=== PATIENT | male | born 1985 | race Caucasian/White ===

== ENCOUNTER 2020-03-16 22:00 | Inpatient (IN) | payer SELFPAY ==
[2020-03-16] VITALS (7 sets, daily range): BP systolic 120–155; BP diastolic 77–101; PULSE 99–115; RESP 12–18; TEMP 36.6; O2SAT 97–98; BMI 24.4
--- NOTE | 2020-03-16 22:02 | XRR_ITS ---
PROCEDURE INFORMATION: Exam: XR Chest, 1 View Exam date and time: 03/16/2020 10:52 PM Age: 35 years old Clinical indication: Patient HX: Overdose, patient intubated TECHNIQUE: Imaging protocol: XR of the chest Views: 1 view. COMPARISON: No relevant prior studies available. FINDINGS: Tubes, catheters and devices: Endotracheal and feeding tubes. The endotracheal tube terminates 4.9 cm above the rigo. Lungs: Interstitial prominence without acute airspace disease. Pleural space: No pleural effusion or pneumothorax. Heart/Mediastinum: No cardiomegaly. Bones/joints: Unremarkable. XR/XR chest 1V portable [id number] IMPRESSION: 1. Endotracheal and feeding tubes. The endotracheal tube terminates 4.9 cm above the rigo. 2. No acute airspace or pleural disease.
--- NOTE | 2020-03-16 22:03 | ECG_ITS ---
Measurements Intervals [place] Rate: 104 P: 64 OR: 139 QRS: 76 QRSD: 86 T: 65 QT: 329 QTc: 433 SINUS TACHYCARDIA ABNORMAL RHYTHM ECG No previous ECG available for comparison Electronically Signed On 03-17-2020 18:53:06 CDT by Modesto Kinney M.D. [email or web address]
--- NOTE | 2020-03-16 22:18 | P.HP_ITS ---
Providers/Chief Complaint Chief Complaint: OVERDOSE/ COMBATIVE History of Present Illness Luis Beltrán is a 35 year old male who was brought in by EMS because of bizarre behavior. Patient was very agitated and was using foul language and hitting staff. He was intubated in the ER. told us that he endorsed suicidal ideation, he took 10 mg of Flexeril. called leasing representative on him because of his behavior. When leasing representative arrived at home he tried to hide in his bedroom, took a lot of effort to bring him to the hospital. He was not letting us examine him, ER decided to intubate him. Poison control recommended monitoring for seizures, worsening of delirium, tachypnea, tachycardia. I have tried to call to get more detail but she did not answer my phone call at 12:21 AM Currently he is intubated and sedated. CMV 60%, 550, PEEP 5 Drug screen positive for amphetamines Review of Systems General: Reports: ROS unobtainable due to endotracheal tube Medications/Allergies Home Medications Medication Instructions Recorded Confirmed Last Taken Type Unable to Assess 03/16/20 03/16/20 Unknown History Allergies Allergy/AdvReac Type Severity Reaction Status Date / Time No Known Allergies Allergy Verified 03/16/20 22:34 PFSH Acute PFSH: Medical History No pertinent past medical history Surgical History No pertinent past surgical history Family History (Updated 03/17/20 @ 00:17 by Modesto Mc MD) Other Unknown family medical history Social History Smoking and tobacco status: unknown if ever smoked Physical Exam Narrative: EXAM NARRATIVE: Head to toe examination Well-built male No active skin ulcer or gangrene Intubated and sedated CMV PEEP 5, 60%, 550 tidal volume Pupils reactive to light bilaterally Multiple body tattoos S1, S2 Sluggish bowel sound Neuro exam not able to be assessed Lungs revealing assisted breath sounds without adventitious sounds Needle track guan bilateral upper extremity Deeply sedated with propofol Data : 03/16/20 22:23 03/16/20 22:23 A&P Assessment and plan (1) Combative behavior: Status: Acute (2) Respiratory failure: Status: Acute (3) Delirium due to dissociative drug: Status: Acute (4) Drug overdose, intentional: Status: Acute (5) Suicidal ideation: Status: Acute (6) Amphetamine abuse: Status: Acute Additional A&P Information Respiratory failure requiring intubation because of aggressive hyperactive delirium due to methamphetamine abuse Intubated and sedated in the ER, Martinez agitation score -2 Drug screen positive for amphetamines He took Flexeril 10 mg multiple tablets Poison control recommended medical monitoring for seizure, delirium, hypertension, tachycardia He will need psych evaluation and 96-hour hold once extubated because of her suicidal attempt I will start thiamine and D5 half-normal saline resuscitation Continue propofol Repeat blood gas in the morning I have tried to call his to get more information but unfortunately she was not able to answer my call, his past medical surgical and family history is still unknown, I have tried to look into his previous records, could not find useful information other than a CT abdomen which was unremarkable Full code DVT prophylaxis: Lovenox Attestations Medical Necessity Statement*: Anticipating stay in the hospital cross more than 2 midnights currently need ICU, he is intubated, after extubation he will be on 96-hour hold for suicidal ideation Time Spent in Patient Care: 45 Coding Level of Care Code Acute Mobility Specialist for [facility] Fwd Diagnoses Combative behavior R46.89 Respiratory failure J96.90 Delirium due to dissociative drug F16.921 Drug overdose, intentional T50.902A Suicidal ideation R45.851 Amphetamine abuse F15.10
[2020-03-16] MEDS: haloperidol inj 5 mg/mL INJ 1 mL IM (22:21)
[2020-03-16] MEDS: LORazepam 2 mg/mL INJ 1 mL IM (22:21)
[2020-03-16] MEDS: vecuronium 10 mg SDV IVP (22:28)
[2020-03-16] MEDS: succinylcholine 20 mg/mL SDV 10mL 150 MG IVP (22:28)
[2020-03-16 22:30] LABS: Basophils % 0.4 %; Eosinophils # 0.2 10^3/uL (0.0-0.8); Hemoglobin 13.9 g/dL (11.7-16.6); Lymphocytes # 1.6 10^3/uL (0.8-4.8); Lymphocytes % 20.9 %; Mean Corpuscular HGB Conc 33.1 g/dL (30.0-36.0); Mean Corpuscular Hemoglobin 30.2 pg (28.0-34.0); Mean Corpuscular Volume 91.3 fL (80-94); Mean Platelet Volume 8.7 fL (7.4-10.4); Monocytes # 0.4 10^3/uL (0.2-0.9); Monocytes % 5.8 %; Neutrophils # 5.4 10^3/uL (1.8-7.7); Neutrophils % 70.8 %; Nucleated Red Blood Cells % 0 %; Platelet Count 302 10^3/cmm (130-400); Red Cell Distribution Width 12.7 % (12.1-15.1); White Blood Count 7.6 10^3/uL (4.0-10.0)
--- NOTE | 2020-03-16 22:31 | ED_ITS ---
HPI - Overdose General: Chief Complaint: Overdose Stated Complaint: OVERDOSE/ COMBATIVE Time Seen by Provider: 03/16/20 22:01 History of Present Illness: HPI Narrative: Luis arrives via EMS in restraints but is agitated and combative and trying to fight with the EMS upon arrival. EMS reports the patient was witnessed ingesting an unknown amount of Flexeril within the past few hours. It is unknown if he has had any alcohol or any other ingestions with this. EMS reports the patient is alternated between extremely somnolent and then agitated and combative necessitating maximal restraints to keep him from hurting himself or them. Patient here will provide no history and continues to be agitated and combative. Review of Systems General: Reports: ROS unobtainable due to medical condition and ROS unobtainable due to mental status PFS ED PFSH: Medical History No pertinent past medical history Surgical History No pertinent past surgical history Family History (Updated 03/17/20 @ 00:17 by Modesto Mc MD) Other Unknown family medical history Social History Smoking and tobacco status: unknown if ever smoked Physical Exam Const: EXAM LIMITATIONS: altered mental status and behavioral limitations GENERAL APPEARANCE: combative HENMT: COMMON NORMALS: normocephalic, atraumatic, hearing grossly normal bilaterally, EAC's normal and Normal external nose present HEAD & SCALP: normocephalic and atraumatic FACE & SINUS: normal facial exam NOSE: Normal external nose present and Normal nares present EXTERNAL AUDITORY CANAL: EAC's normal Eye: COMMON NORMALS: Equal, round and reactive pupils present and conjunctivae normal CONJUNCTIVA: Yes conjunctivae normal PUPIL: Yes Equal, round and reactive pupils present Neck/C-Spine: COMMON NORMALS: no lymphadenopathy, supple and no meningeal signs Chest: COMMONS NORMALS: normal inspection of the chest and normal palpation of entire chest wall Resp: EFFORT & INSPECTION: Yes abnormal respiratory pattern (Alternating between tachypnea with agitation and then at times very shallow weak expiratory efforts.) Cardio: COMMON NORMALS: S1 normal heart sound present, S2 normal heart sound present, No clicks present (Cardio), No murmurs present (Cardio) and No rub (Cardio) RATE: tachycardic HEART SOUNDS: S1 normal heart sound present and S2 normal heart sound present GI: COMMON NORMALS: Soft to palpation, non-tender, No hepatosplenomegaly present and no masses PALPATION: Yes Soft to palpation and Yes No he patosplenomegaly present Extremity: COMMON NORMALS: normal to inspection, capillary refill normal, no joint enlargement, no clubbing, cyanosis or edema, no calf tenderness and no pedal edema Neuro: AMANDA COMA SCALE: document GCS findings [place] coma scale eye opening: None Amanda coma scale verbal response: Sounds Amanda coma scale motor response: Localising [place] coma scale total score: 8 MENINGEAL SIGNS: Yes no meningeal signs Skin: COMMON NORMALS: no rashes or lesions noted, no wounds, turgor normal, no jaundice, no petechiae and no mottling GENERAL SKIN EXAM: no rashes or lesions noted and turgor normal Procedures EJ/Peripheral Line Arm L: Time Out Performed: Yes Skin Cleansed in Sterile Fashion: Yes Size (gauge): 20 IV Secured and Dressing Applied: Yes Patient Tolerated Procedure: well Additional Comments: Ultrasound used and line confirmed in place after and also visualized throughout. Intubation sedative: Etomidate Mg Given: 20 Laryngoscope: Salvador ET Tube Size: 8 ET Tube Uncuffed: Yes Tube Secured Depth (cm): 22 Tube Secured Location: lips Tube Placement Confirmation: visualized tube passing through cords, equal breath sounds bilaterally, no breath sounds over epigastrium and confirmation by capnometry Patient Tolerated Procedure: well and no complications Intubation Complications: none Course ED course: 2209 -patient is combative and agitated and fights. He is lashing out at nurses and is a threat to himself and others. He has had Haldol and Ativan with no effect. He does not respond to verbal de-escalation prompts. I have quickly consulted with Dr. Mc who is in agreement we will need to intubate the patient to expedite his care as with him fighting we cannot address possible serious life-threatening ingestions and other problems. 2299 -I discussed recent events leading up to the night with Luis's Joann. She called in to ask how he was and she was updated on his condition. She states that he was witnessed taking a large amount of Flexeril by family members. She does believe he did this in a suicidal gesture. She is willing to come in and place an affidavit on the chart but cannot do so until tomorrow. She is unaware if he took anything else or has ingested any alcohol today. 2310 -Case reviewed with poison control. They state Flexeril alone can cause obtundation as well as agitated delirium secondary to anticholinergic type symptoms. He can also have tremors and seizures along with tachycardia. He can have hypotension as well as hypertension. They do recommend following his CK secondary to the agitation. They will send management guidelines by fax. Vital Signs: Vital signs: Vital Signs Temperature 97.8 F 03/16/20 22:17 Pulse Rate 95 03/17/20 01:11 Respiratory Rate 16 03/17/20 01:11 Blood Pressure 124/80 03/17/20 01:11 Pulse Oximetry 98 03/17/20 01:11 MDM - Overdose Lab Data: Labs: Lab Results 03/16/20 03/16/20 03/16/20 Range/Units 22:23 22:23 22:23 WBC 7.6 (4.0-10.0) 10^3/ uL RBC 4.60 (4.1-5.3) 10^6/u L Hgb 13.9 (11.7-16.6) g/dL Hct 42.0 (42.0-52.0) % MCV 91.3 (80-94) fL MCH 30.2 (28.0-34.0) pg MCHC 33.1 (30.0-36.0) g/dL RDW 12.7 (12.1-15.1) % Plt Count 302 (130-400) 10^3/c mm MPV 8.7 (7.4-10.4) fL Neut % (Auto) 70.8 % Lymph % (Auto) 20.9 % Cochran % (Auto) 5.8 % Eos % (Auto) 2.0 % Baso % (Auto) 0.4 % Neut # (Auto) 5.4 (1.8-7.7) 10^3/u L Lymph # (Auto) 1.6 (0.8-4.8) 10^3/u L Cochran # (Auto) 0.4 (0.2-0.9) 10^3/u L Eos # (Auto) 0.2 (0.0-0.8) 10^3/u L Baso # (Auto) 0.0 (0.0-0.1) 10^3/u L Nucleated RBC % (a uto) 0 % Nucleated RBCs # 0.0 /100WBC PT (10.5-13.3) SECO NDS INR (0.8-1.2) Specimen Type Sample Site ABG pH (7.35-7.45) ABG pCO2 (35-45) mmHg ABG HCO3 (22-26) mmol/L ABG Base Excess (-2.0-2.0) mmol/ L Venu Test A-a O2 Gradient (5-10) mmHg Hematocrit (42-52) % Hgb O2 Saturation (95-100) % Carboxyhemoglobin (0.4-20.1) %THgb Methemoglobin (0.4-1.5) % Total Hemoglobin (14-18) g/dL Ionized Calcium (1.1-1.4) mmol/L Respiration Rate % O2 Delivery Device Mechanical Rate FiO2 % PEEP cmH20 [employer] Official ID Sodium 141 (136-145) mmol/L Potassium 3.7 (3.5-5.1) mmol/L Chloride 104 (98-107) mmol/L Carbon Dioxide 25 (22-29) mmol/L Anion Gap 15.7 (5-19) BUN 7 (6-20) mg/dL Creatinine 1.0 (0.7-1.2) mg/dL GFR Calculation 84.5 L (90-130) mL/min Glucose 112 (65-115) mg/dL Calculated Osmolal ity 289 (285-295) mOsm/k g Lactic Acid 1.3 (0.5-2.2) mmol/L Calcium 9.4 (8.5-10.5) mg/dL Magnesium 2.0 (1.7-2.3) mg/dL Total Bilirubin 0.2 (0.15-1.2) mg/dL AST 15 (0-40) U/L ALT 21 (0-41) U/L Alkaline Phosphata se 68 (40-130) IU/L Creatine Kinase 96 (39-308) U/L Troponin T Baselin e (0-15) ng/mL Total Protein 6.8 (6.6-8.7) g/dL Albumin 4.1 (3.5-5.2) g/dL Globulin 2.7 (1.3-4.6) g/dL TSH 2.55 (0.27-4.20) uIU/ mL Urine Color (Yellow) Urine Appearance (CLEAR) Urine pH (5-7) Ur Specific Gravit y (1.005-1.030) Urine Protein (Negative) Urine Glucose (UA) (Normal) Urine Ketones (Negative) Urine Blood (Negative) Urine Nitrate (Negative) Urine Bilirubin (NEGATIVE) Urine Urobilinogen (Negative) mg/dL Ur Leukocyte Sybil ase (Negative) Urine RBC (0-2) /hpf Urine WBC (0-5) /hpf Ur Squamous Epith Cells (0-5) Urine Bacteria (NONE) Salicylates < 0.3 L (3-10) mg/dL Urine Opiates Scre en (Negative) ng/mL Acetaminophen < 5.0 L (10-30) ug/mL Ur Barbiturates Sc reen (Negative) ng/mL Phenytoin 0.8 L (10-20) ug/mL Valproic Acid 2.8 L (50-100) mcg/mL Carbamazepine 2.0 L (4.0-12.0) ug/mL Ur Phencyclidine S crn (Negative) ng/mL Ur Amphetamines Sc reen (Negative) ng/mL U Benzodiazepines Scrn (Negative) ng/mL [place] (0.6-1.2) mmol/L Urine Cocaine Scre en (Negative) ng/mL U Marijuana (THC) Screen (Negative) ng/mL Ethyl Alcohol < 10 (0-10) mg/dL Serum Ketones (Negative) 03/16/20 03/16/20 03/16/20 Range/Units 22:23 22:23 22:23 WBC (4.0-10.0) 10^3/ uL RBC (4.1-5.3) 10^6/u L Hgb (11.7-16.6) g/dL Hct (42.0-52.0) % MCV (80-94) fL MCH (28.0-34.0) pg MCHC (30.0-36.0) g/dL RDW (12.1-15.1) % Plt Count (130-400) 10^3/c mm MPV (7.4-10.4) fL Neut % (Auto) % Lymph % (Auto) % Cochran % (Auto) % Eos % (Auto) % Baso % (Auto) % Neut # (Auto) (1.8-7.7) 10^3/u L Lymph # (Auto) (0.8-4.8) 10^3/u L Cochran # (Auto) (0.2-0.9) 10^3/u L Eos # (Auto) (0.0-0.8) 10^3/u L Baso # (Auto) (0.0-0.1) 10^3/u L Nucleated RBC % (a uto) % Nucleated RBCs # /100WBC PT 12.90 (10.5-13.3) SECO NDS INR 0.94 (0.8-1.2) Specimen Type Sample Site ABG pH (7.35-7.45) ABG pCO2 (35-45) mmHg ABG HCO3 (22-26) mmol/L ABG Base Excess (-2.0-2.0) mmol/ L Venu Test A-a O2 Gradient (5-10) mmHg Hematocrit (42-52) % Hgb O2 Saturation (95-100) % Carboxyhemoglobin (0.4-20.1) %THgb Methemoglobin (0.4-1.5) % Total Hemoglobin (14-18) g/dL Ionized Calcium (1.1-1.4) mmol/L Respiration Rate % O2 Delivery Device Mechanical Rate FiO2 % PEEP cmH20 [employer] Official ID Sodium (136-145) mmol/L Potassium (3.5-5.1) mmol/L Chloride (98-107) mmol/L Carbon Dioxide (22-29) mmol/L Anion Gap (5-19) BUN (6-20) mg/dL Creatinine (0.7-1.2) mg/dL GFR Calculation (90-130) mL/min Glucose (65-115) mg/dL Calculated Osmolal ity (285-295) mOsm/k g Lactic Acid (0.5-2.2) mmol/L Calcium (8.5-10.5) mg/dL Magnesium (1.7-2.3) mg/dL Total Bilirubin (0.15-1.2) mg/dL AST (0-40) U/L ALT (0-41) U/L Alkaline Phosphata se (40-130) IU/L Creatine Kinase (39-308) U/L Troponin T Baselin e (0-15) ng/mL Total Protein (6.6-8.7) g/dL Albumin (3.5-5.2) g/dL Globulin (1.3-4.6) g/dL TSH (0.27-4.20) uIU/ mL Urine Color (Yellow) Urine Appearance (CLEAR) Urine pH (5-7) Ur Specific Gravit y (1.005-1.030) Urine Protein (Negative) Urine Glucose (UA) (Normal) Urine Ketones (Negative) Urine Blood (Negative) Urine Nitrate (Negative) Urine Bilirubin (NEGATIVE) Urine Urobilinogen (Negative) mg/dL Ur Leukocyte Sybil ase (Negative) Urine RBC (0-2) /hpf Urine WBC (0-5) /hpf Ur Squamous Epith Cells (0-5) Urine Bacteria (NONE) Salicylates (3-10) mg/dL Urine Opiates Scre en (Negative) ng/mL Acetaminophen (10-30) ug/mL Ur Barbiturates Sc reen (Negative) ng/mL Phenytoin (10-20) ug/mL Valproic Acid (50-100) mcg/mL Carbamazepine (4.0-12.0) ug/mL Ur Phencyclidine S crn (Negative) ng/mL Ur Amphetamines Sc reen (Negative) ng/mL U Benzodiazepines Scrn (Negative) ng/mL [place] 0.1 L (0.6-1.2) mmol/L Urine Cocaine Scre en (Negative) ng/mL U Marijuana (THC) Screen (Negative) ng/mL Ethyl Alcohol (0-10) mg/dL Serum Ketones Negative (Negative) 03/16/20 03/16/20 03/16/20 Range/Units 22:23 23:02 23:02 WBC (4.0-10.0) 10^3/ uL RBC (4.1-5.3) 10^6/u L Hgb (11.7-16.6) g/dL Hct (42.0-52.0) % MCV (80-94) fL MCH (28.0-34.0) pg MCHC (30.0-36.0) g/dL RDW (12.1-15.1) % Plt Count (130-400) 10^3/c mm MPV (7.4-10.4) fL Neut % (Auto) % Lymph % (Auto) % Cochran % (Auto) % Eos % (Auto) % Baso % (Auto) % Neut # (Auto) (1.8-7.7) 10^3/u L Lymph # (Auto) (0.8-4.8) 10^3/u L Cochran # (Auto) (0.2-0.9) 10^3/u L Eos # (Auto) (0.0-0.8) 10^3/u L Baso # (Auto) (0.0-0.1) 10^3/u L Nucleated RBC % (a uto) % Nucleated RBCs # /100WBC PT (10.5-13.3) SECO NDS INR (0.8-1.2) Specimen Type Sample Site ABG pH (7.35-7.45) ABG pCO2 (35-45) mmHg ABG HCO3 (22-26) mmol/L ABG Base Excess (-2.0-2.0) mmol/ L Venu Test A-a O2 Gradient (5-10) mmHg Hematocrit (42-52) % Hgb O2 Saturation (95-100) % Carboxyhemoglobin (0.4-20.1) %THgb Methemoglobin (0.4-1.5) % Total Hemoglobin (14-18) g/dL Ionized Calcium (1.1-1.4) mmol/L Respiration Rate % O2 Delivery Device Mechanical Rate FiO2 % PEEP cmH20 [employer] Official ID Sodium (136-145) mmol/L Potassium (3.5-5.1) mmol/L Chloride (98-107) mmol/L Carbon Dioxide (22-29) mmol/L Anion Gap (5-19) BUN (6-20) mg/dL Creatinine (0.7-1.2) mg/dL GFR Calculation (90-130) mL/min Glucose (65-115) mg/dL Calculated Osmolal ity (285-295) mOsm/k g Lactic Acid (0.5-2.2) mmol/L Calcium (8.5-10.5) mg/dL Magnesium (1.7-2.3) mg/dL Total Bilirubin (0.15-1.2) mg/dL AST (0-40) U/L ALT (0-41) U/L Alkaline Phosphata se (40-130) IU/L Creatine Kinase (39-308) U/L Troponin T Baselin e 6 (0-15) ng/mL Total Protein (6.6-8.7) g/dL Albumin (3.5-5.2) g/dL Globulin (1.3-4.6) g/dL TSH (0.27-4.20) uIU/ mL Urine Color Yellow (Yellow) Urine Appearance Clear (CLEAR) Urine pH 5 (5-7) Ur Specific Gravit y 1.015 (1.005-1.030) Urine Protein Neg (Negative) Urine Glucose (UA) Norm (Normal) Urine Ketones Negative (Negative) Urine Blood Neg (Negative) Urine Nitrate Negative (Negative) Urine Bilirubin Neg (NEGATIVE) Urine Urobilinogen Norm (Negative) mg/dL Ur Leukocyte Sybil ase Negative (Negative) Urine RBC Rare (0-2) /hpf Urine WBC Rare (0-5) /hpf Ur Squamous Epith Cells Rare (0-5) Urine Bacteria Trace (NONE) Salicylates (3-10) mg/dL Urine Opiates Scre en Negative (Negative) ng/mL Acetaminophen (10-30) ug/mL Ur Barbiturates Sc reen Negative (Negative) ng/mL Phenytoin (10-20) ug/mL Valproic Acid (50-100) mcg/mL Carbamazepine (4.0-12.0) ug/mL Ur Phencyclidine S crn Negative (Negative) ng/mL Ur Amphetamines Sc reen Positive H (Negative) ng/mL U Benzodiazepines Scrn Negative (Negative) ng/mL [place] (0.6-1.2) mmol/L Urine Cocaine Scre en Negative (Negative) ng/mL U Marijuana (THC) Screen Negative (Negative) ng/mL Ethyl Alcohol (0-10) mg/dL Serum Ketones (Negative) 03/16/20 Range/Units 23:24 WBC (4.0-10.0) 10^3/ uL RBC (4.1-5.3) 10^6/u L Hgb (11.7-16.6) g/dL Hct (42.0-52.0) % MCV (80-94) fL MCH (28.0-34.0) pg MCHC (30.0-36.0) g/dL RDW (12.1-15.1) % Plt Count (130-400) 10^3/c mm MPV (7.4-10.4) fL Neut % (Auto) % Lymph % (Auto) % Cochran % (Auto) % Eos % (Auto) % Baso % (Auto) % Neut # (Auto) (1.8-7.7) 10^3/u L Lymph # (Auto) (0.8-4.8) 10^3/u L Cochran # (Auto) (0.2-0.9) 10^3/u L Eos # (Auto) (0.0-0.8) 10^3/u L Baso # (Auto) (0.0-0.1) 10^3/u L Nucleated RBC % (a uto) % Nucleated RBCs # /100WBC PT (10.5-13.3) SECO NDS INR (0.8-1.2) Specimen Type Arterial Sample Site Radial, right ABG pH 7.40 (7.35-7.45) ABG pCO2 43.1 (35-45) mmHg ABG HCO3 26.8 H (22-26) mmol/L ABG Base Excess 1.7 (-2.0-2.0) mmol/ L Venu Test Pos A-a O2 Gradient 69.6 H (5-10) mmHg Hematocrit 40.3 L (42-52) % Hgb O2 Saturation 97.7 (95-100) % Carboxyhemoglobin 1.4 (0.4-20.1) %THgb Methemoglobin 1.0 (0.4-1.5) % Total Hemoglobin 13.2 L (14-18) g/dL Ionized Calcium 1.1 (1.1-1.4) mmol/L Respiration Rate 12.0 % O2 Delivery Device Vent Mechanical Rate 12.0 FiO2 60.0 % PEEP 8.0 cmH20 [employer] Official ID vossa Sodium 143.0 (136-145) mmol/L Potassium 3.3 L (3.5-5.1) mmol/L Chloride (98-107) mmol/L Carbon Dioxide (22-29) mmol/L Anion Gap (5-19) BUN (6-20) mg/dL Creatinine (0.7-1.2) mg/dL GFR Calculation (90-130) mL/min Glucose 102.0 (65-115) mg/dL Calculated Osmolal ity (285-295) mOsm/k g Lactic Acid (0.5-2.2) mmol/L Calcium (8.5-10.5) mg/dL Magnesium (1.7-2.3) mg/dL Total Bilirubin (0.15-1.2) mg/dL AST (0-40) U/L ALT (0-41) U/L Alkaline Phosphata se (40-130) IU/L Creatine Kinase (39-308) U/L Troponin T Baselin e (0-15) ng/mL Total Protein (6.6-8.7) g/dL Albumin (3.5-5.2) g/dL Globulin (1.3-4.6) g/dL TSH (0.27-4.20) uIU/ mL Urine Color (Yellow) Urine Appearance (CLEAR) Urine pH (5-7) Ur Specific Gravit y (1.005-1.030) Urine Protein (Negative) Urine Glucose (UA) (Normal) Urine Ketones (Negative) Urine Blood (Negative) Urine Nitrate (Negative) Urine Bilirubin (NEGATIVE) Urine Urobilinogen (Negative) mg/dL Ur Leukocyte Sybil ase (Negative) Urine RBC (0-2) /hpf Urine WBC (0-5) /hpf Ur Squamous Epith Cells (0-5) Urine Bacteria (NONE) Salicylates (3-10) mg/dL Urine Opiates Scre en (Negative) ng/mL Acetaminophen (10-30) ug/mL Ur Barbiturates Sc reen (Negative) ng/mL Phenytoin (10-20) ug/mL Valproic Acid (50-100) mcg/mL Carbamazepine (4.0-12.0) ug/mL Ur Phencyclidine S crn (Negative) ng/mL Ur Amphetamines Sc reen (Negative) ng/mL U Benzodiazepines Scrn (Negative) ng/mL [place] (0.6-1.2) mmol/L Urine Cocaine Scre en (Negative) ng/mL U Marijuana (THC) Screen (Negative) ng/mL Ethyl Alcohol (0-10) mg/dL Serum Ketones (Negative) Imaging Data^: CXR: My impression: No acute cardiopulmonary findings. No sign of aspiration. No pneumothorax. ET tube and NG tube with good placement. EKG Data^: EKG 1: Attestation: I personally reviewed and interpreted this EKG as follows: EKG interpretation date: 03/16/20 EKG interpretation time: 23:01 Interpretation: Sinus tachycardia with a heart rate of 104, no blocks, normal intervals. Nonspecific ST and T wave changes. Critical Care Time Critical Care Time: Critical Care Time: Yes Total Critical Care Time: 30 Attestation: Critical care time consisted of helping restrain patient, assessing vital signs, obtaining history and performing physical examination. Critical care time consisted of prepping for and post intubation care. Critical care time consisted of ventilator management as well as lab and ABG interpretations. Critical care time was independent of billable procedures. Discharge Plan Discharge Admit Provider: Modesto Mc Discharge Date/Time: 03/17/20 01:46 Coding Level of Care Code [employer] for [employer] Fwd Exam Comprehensive
[2020-03-16] MEDS: propofol 1,000 MG/100 ML INJ 5 MG (22:42)
[2020-03-16 22:44] LABS: INR 0.94 (0.8-1.2)
[2020-03-16] MEDS: sodium chloride 0.9% 1,000 ML 999 ML IV (22:45)
[2020-03-16 22:49] LABS: Lactic Sepsis W/Reflex 1.3 mmol/L (0.5-2.2)
[2020-03-16 22:51] LABS: Ketone (Acetest) Serum Negative (Negative); Troponin(5th) Baseline 6 ng/mL (0-15)
[2020-03-16 23:00] LABS: Alanine Aminotransferase 21 U/L (0-41); Albumin Level 4.1 g/dL (3.5-5.2); Alkaline Phosphatase 68 IU/L (40-130); Anion Gap 15.7 (5-19); Aspartate Amino Transferase 15 U/L (0-40); Blood Urea Nitrogen 7 mg/dL (6-20); Calcium 9.4 mg/dL (8.5-10.5); Carbon Dioxide 25 mmol/L (22-29); Chloride 104 mmol/L (98-107); Creatine Phosphokinase 96 U/L (39-308); Globulin 2.7 g/dL (1.3-4.6); Glomerular Filtration Rate 84.5 mL/min (90-130); Glucose 112 mg/dL (65-115); Osmolality Calculated 289 mOsm/kg (285-295); Potassium 3.7 mmol/L (3.5-5.1); Sodium 141 mmol/L (136-145); Thyroid Stimulating Hormone 2.55 uIU/mL (0.27-4.20); Total Bilirubin 0.2 mg/dL (0.15-1.2); Total Protein 6.8 g/dL (6.6-8.7)
[2020-03-16 23:12] LABS: Acetaminophen < 5.0 ug/mL (10-30); Alcohol Level < 10 mg/dL (0-10); Salicylate < 0.3 mg/dL (3-10)
[2020-03-16 23:18] LABS: Bacteria Urine TRACE; Bilirubin Urine Neg (NEGATIVE); Blood Urine Neg (Negative); Glucose Urine UA Norm (Normal); Ketones Urine Negative (Negative); Leukocyte Esterase Urine Negative (Negative); Nitrate Urine Negative (Negative); Protein Urine Neg (Negative); RBC Urine RARE /hpf (0-2); Specific Gravity, Urine 1.015 (1.005-1.030); Squamous Epithelial Cell Urine RARE (0-5); Urine Appearance Clear (CLEAR); Urine Color Yellow (Yellow); Urobilinogen Urine Norm (Negative); WBC Urine RARE /hpf (0-5); pH Urine 5 (5-7)
[2020-03-16 23:22] LABS: Amphetamines Screen Urine Positive (Negative); Barbiturates Screen Urine Negative (Negative); Benzodiazepines Screen Urine Negative (Negative); Cocaine Screen Urine Negative (Negative); Opiate Screen Urine Negative (Negative); PCP Screen Urine Negative (Negative); THC Screen Urine Negative (Negative)
[2020-03-16 23:36] LABS: ABG PCO2 43.1 mmHg (35-45); Alveolar-Arterial Oxygen Gradi 69.6 mmHg (5-10); Arterial Blood Gas Hematocrit 40.3 % (42-52); Base Excess ABG 1.7 mmol/L (-2.0-2.0); Blood Gas Allen Test Pos; Blood Gas Sample Site Radial, right; Blood Gas Sample Type Arterial; Carboxyhemoglobin 1.4 %THgb (0.4-20.1); HCO3 ABG 26.8 mmol/L (22-26); HGB O2 Sat 97.7 % (95-100); Ionized Calcium Level - ABG 1.1 mmol/L (1.1-1.4); Oxygen Device VENT; Potassium Level - ABG 3.3 mmol/L (3.5-5.0); Total Hemoglobin 13.2 g/dL (14-18)
--- NOTE | 2020-03-16 23:59 | CTR_ITS ---
PROCEDURE INFORMATION: Exam: CT Head Without Contrast Exam date and time: 03/17/2020 12:00 AM Age: 35 years old Clinical indication: Altered mental status/memory loss; Additional info: AMS TECHNIQUE: Imaging protocol: Computed tomography of the head without contrast. Radiation optimization: All CT scans at this facility use at least one of these dose optimization techniques: automated exposure control; mA and/or kV adjustment per patient size (includes targeted exams where dose is matched to clinical indication); or iterative reconstruction. COMPARISON: No relevant prior studies available. RADIATION DOSE METRICS: Total DLP: 885.05 mGy-cm FINDINGS: Brain: No acute intracranial hemorrhage or mass effect. No definite acute infarct by CT. MRI could be more sensitive/specific for detection, as clinically directed. Ventricles: Ventricle size is normal for age. Bones/joints: No definite acute skull fracture. Sinuses: Included paranasal sinuses are essentially clear. Mastoid air cells: No significant acute finding. CT/CT head wo con* [id number] IMPRESSION: 1. No acute intracranial hemorrhage or mass effect. 2. No definite acute infarct by CT, see above. 3. Other findings discussed above. Radiation Dose CTDIVOL = (mGy): DLP = 885.05 (mGy-cm)
--- NOTE | 2020-03-16 23:59 | CTR_ITS ---
PROCEDURE INFORMATION: Exam: CT Cervical Spine Without Contrast Exam date and time: 03/17/2020 12:00 AM Age: 35 years old Clinical indication: Neck pain TECHNIQUE: Imaging protocol: Computed tomography images of the cervical spine without contrast. Radiation optimization: All CT scans at this facility use at least one of these dose optimization techniques: automated exposure control; mA and/or kV adjustment per patient size (includes targeted exams where dose is matched to clinical indication); or iterative reconstruction. COMPARISON: No relevant prior studies available. RADIATION DOSE METRICS: Total DLP: 704.37 mGy-cm FINDINGS: Tubes, catheters and devices: An ET tube and OG tube are present. Vertebrae: On axial CT images, no definite acute fracture is visible. Sagittal and coronal reconstructions show no fracture or subluxation. Discs/Spinal canal/Neural foramina: No definite/significant disc herniation by CT, MRI could be more sensitive if clinically indicated. Lungs: No significant acute abnormality in the upper lungs. CT/CT cervical spin wo con* [id number] IMPRESSION: 1. No definite acute fracture or subluxation by CT. 2. Other findings discussed above. Radiation Dose CTDIVOL = (mGy): DLP = 704.37 (mGy-cm)
[2020-03-17] VITALS (28 sets, daily range): BP systolic 111–151; BP diastolic 80–93; PULSE 84–101; RESP 10–19; TEMP 36.5–37.3; O2SAT 96–100
--- NOTE | 2020-03-17 00:01 | PC.NURSE ---
EKG done at 2350 and shown to ER doctor
[2020-03-17 00:17] LABS: Phenytoin Dilantin 0.8 ug/mL (10-20); Valproic Acid Level 2.8 mcg/mL (50-100)
[2020-03-17 00:18] LABS: Lithium 0.1 mmol/L (0.6-1.2)
[2020-03-17 00:46] LABS: Troponin 5 2HR Delta 0 ABS# (0-10)
[2020-03-17] MEDS: fentaNYL 50 mcg/mL INJ 2mL 100 MCG IVP (00:51)
[2020-03-17] MEDS: propofol 1,000 MG/100 ML INJ 23.8 MG IV ×2 (01:45→03:31)
[2020-03-17] MEDS: enoxaparin 40 mg/0.4 mL Syringe SUBCUT (02:10)
[2020-03-17] MEDS: dextrose 5%-sod chloride 0.45% 1,000 ML 75 ML IV ×2 (02:11→14:22)
--- NOTE | 2020-03-17 04:03 | ECG_ITS ---
Measurements Intervals [place] Rate: 96 P: 23 TN: 148 QRS: 66 QRSD: 93 T: 30 QT: 348 QTc: 442 SINUS RHYTHM WARNING: DATA QUALITY MAY AFFECT INTERPRETATION No previous ECG available for comparison Electronically Signed On 03-17-2020 19:01:17 CDT by Modesto Kinney M.D. [email or web address]
[2020-03-17 04:39] LABS: Basophils % 0.4 %; Eosinophils # 0.1 10^3/uL (0.0-0.8); Eosinophils % 1.1 %; Hemoglobin 13.7 g/dL (11.7-16.6); Mean Corpuscular HGB Conc 32.6 g/dL (30.0-36.0); Mean Corpuscular Hemoglobin 30.7 pg (28.0-34.0); Mean Corpuscular Volume 94.2 fL (80-94); Mean Platelet Volume 8.7 fL (7.4-10.4); Monocytes # 0.5 10^3/uL (0.2-0.9); Monocytes % 6.6 %; Neutrophils # 4.8 10^3/uL (1.8-7.7); Neutrophils % 64.5 %; Nucleated Red Blood Cells % 0 %; Platelet Count 269 10^3/cmm (130-400); Red Blood Count 4.46 10^6/uL (4.1-5.3); Red Cell Distribution Width 12.9 % (12.1-15.1); White Blood Count 7.4 10^3/uL (4.0-10.0)
[2020-03-17 04:47] LABS: ABG PH Result 7.41 (7.35-7.45); Arterial Blood Gas Hematocrit 41.8 % (42-52); Blood Gas Allen Test Pos; Blood Gas Sample Site Radial, right; Blood Gas Sample Type Arterial; HCO3 ABG 27.1 mmol/L (22-26); Oxygen Device VENT
[2020-03-17 04:55] LABS: Alanine Aminotransferase 19 U/L (0-41); Albumin Level 3.7 g/dL (3.5-5.2); Alkaline Phosphatase 61 IU/L (40-130); Anion Gap 13.3 (5-19); Aspartate Amino Transferase 18 U/L (0-40); Blood Urea Nitrogen 6 mg/dL (6-20); Calcium 8.5 mg/dL (8.5-10.5); Carbon Dioxide 24 mmol/L (22-29); Chloride 106 mmol/L (98-107); Globulin 2.2 g/dL (1.3-4.6); Glomerular Filtration Rate 127.6 mL/min (90-130); Glucose 114 mg/dL (65-115); Osmolality Calculated 287 mOsm/kg (285-295); Potassium 3.3 mmol/L (3.5-5.1); Sodium 140 mmol/L (136-145); Total Bilirubin 0.3 mg/dL (0.15-1.2); Total Protein 5.9 g/dL (6.6-8.7)
[2020-03-17 05:29] LABS: Troponin 5 6HR Delta 0 ng/L (0-12)
[2020-03-17] MEDS: propofol 1,000 MG/100 ML INJ 21.4 MG IV (07:13)
--- NOTE | 2020-03-17 07:31 | PM.PN ---
Subjective Subjective: Interval history: Luis is a 35-year-old white male who presented to the emergency department last night with combative and bizarre behavior. I talked to his this morning who indicated he took an unknown amount of Flexeril, and a suicide attempt. He had had gestures in the past. She reports he vocalized that he was taking the medication to kill himself last night. Patient is intubated and sedated and cannot answer questions currently. He was intubated in the emergency department secondary to his combative behavior that was potentially self-injurious Medications: Reviewed: Yes Vitals/I&O/Wt Last Vital Signs Temp 97.7 F 03/17/20 04:00 Pulse 85 03/17/20 06:00 Resp 12 03/17/20 05:58 BP 121/87 03/17/20 06:00 Pulse Ox 100 03/17/20 06:00 03/16/20 03/17/20 03/17/20 22:59 06:59 14:59 Intake Total 1065.884 / 1065.884 138.06 / 138.06 Output Total 675 / 675 Balance 390.884 / 390.884 138.06 / 138.06 Weight last 48 hrs Weight 79.379 kg Physical Exam Narrative: EXAM NARRATIVE: General exam no apparent distress, sedated Cardiovascular regular rate and rhythm, no murmur Lungs clear no wheezing or crackles Abdomen is soft with positive bowel sounds. No obvious organomegaly was deferred, Moreno is noted Extremities no cyanosis clubbing or edema Neuro: No obvious focal deficits Urinary Catheter Management^: Moreno: Cath Placed During This Visit: yes Reason for Continuing Indwelling Catheter: Accurate Measurement of Urinary Output in Critically Ill Patients Urinary Catheter Date of Insertion: 03/16/20 Urinary Catheter Time of Insertion: 22:58 Data : 03/17/20 04:20 03/17/20 04:20 A&P Assessment and plan (1) Combative behavior: Presumably secondary to overdose with Flexeril and/or amphetamines Status: Acute (2) Respiratory failure: Intubated for combative behavior and self-injurious behavior from my understanding. Will wean sedation, and extubate if appropriate. No primary pulmonary issues. Ventilator settings minimal. Status: Acute (3) Delirium due to dissociative drug: See above Status: Acute (4) Drug overdose, intentional: Flexeril overdose, unknown amount. Wean sedation, monitor for any effects. Status: Acute (5) Suicidal ideation: Affidavit will be filled out based on 's testimony. Nursing will fill 1 out as well. She indicates she will fill 1 out as well. 96-hour hold will be placed. indicates suicide attempt with Flexeril. Psychiatric consultation Status: Acute (6) Amphetamine abuse: Will chemical dependency counselor when able Status: Acute Additional A&P Information Full code DVT prophylaxis: Lovenox Attestations Medical Necessity Statement*: Needs continued hospitalization, secondary to overdose requiring mechanical ventilation and 96-hour hold will be instituted for suicidal attempt Coding Level of Care Code Acute Aba Therapist for [facility] Fwd Diagnoses Combative behavior R46.89 Respiratory failure J96.90 Delirium due to dissociative drug F16.921 Drug overdose, intentional T50.902A Suicidal ideation R45.851 Amphetamine abuse F15.10
[2020-03-17] MEDS: pantoprazole 40 mg SDV IVP (09:20)
[2020-03-17] MEDS: potassium chloride oral liq 20 mEq/15 mL UDC 40 MEQ OG-TUBE (09:22)
[2020-03-17] MEDS: chlorhexidine gluconate 0.12% Btl 473 mL 15 ML MUCOUS MEM ×2 (09:23→18:21)
--- NOTE | 2020-03-17 11:28 | PC.NURSE ---
more alert trying to pull tube. propofol off approx. 20 min. to p.s.
--- NOTE | 2020-03-17 11:55 | PC.NURSE ---
following commands for the most part. raises eyebrows but doesnt open eyes. r.r. 12 on p.s.
--- NOTE | 2020-03-17 13:24 | PC.NURSE ---
with much stimulation, tries to open eyes. not squeezing fingers on command.
--- NOTE | 2020-03-17 14:38 | PC.NURSE ---
conts. to follow commands with deep stimulation. still wont open eyes, raises eyebrows.
--- NOTE | 2020-03-17 14:53 | PC.NURSE ---
follows commands. wont open eyes.
--- NOTE | 2020-03-17 17:49 | PC.NURSE ---
dr. chong will leave intubated tonight. dr. merino says to restart propofol if pt. not tolerating vent.
[2020-03-17] MEDS: propofol 1,000 MG/100 ML INJ 14.3 MG IV (21:09)
--- NOTE | 2020-03-17 22:01 | PC.NURSE ---
pat currently on vent support. anticipating extubating per Dr. Rock. lungs are decreased bilateral . iv patent and infusing propofol and d51/2 ns.
[2020-03-18] VITALS (13 sets, daily range): BP systolic 104–135; BP diastolic 72–87; PULSE 92–115; RESP 14–27; TEMP 36.8–37.6; O2SAT 93–97; BMI 24.4
[2020-03-18] MEDS: enoxaparin 40 mg/0.4 mL Syringe SUBCUT (04:04)
[2020-03-18] MEDS: dextrose 5%-sod chloride 0.45% 1,000 ML 75 ML IV (04:04)
[2020-03-18] MEDS: propofol 1,000 MG/100 ML INJ 14.3 MG IV (06:21)
--- NOTE | 2020-03-18 07:31 | PC.NURSE ---
DR BLACKWOOD ROUNDED, PT ABLE TO FOLLOW COMMANDS. RESP THERAPY HERE. SEDATION OFF & VENT CHANGED TO PRESSURE SUPPORT PER RT. 07/24, 30%.
--- NOTE | 2020-03-18 07:34 | PM.PN ---
Subjective Subjective: Interval history: Luis had persistent lethargy yesterday so his extubation of was held. This morning he is on some propofol, but can nod his head, follow all directions. Medications: Reviewed: Yes Vitals/I&O/Wt Last Vital Signs Temp 99.1 F 03/18/20 05:54 Pulse 101 H 03/18/20 05:54 Resp 21 H 03/18/20 07:30 BP 130/81 03/18/20 05:54 Pulse Ox 96 03/18/20 05:54 03/17/20 03/18/20 03/18/20 22:59 06:59 14:59 Intake Total 1100 / 2251.81 16.445 / 16.445 Output Total 950 / 950 400 / 1350 Balance -950 / 201.81 700 / 901.81 16.445 / 16.445 Weight last 48 hrs Weight 79.379 kg Physical Exam Narrative: EXAM NARRATIVE: General exam is a white male who becomes alert when saying his name, who can follow directions Cardiovascular slight tachycardia no murmur Lungs clear Abdomen is soft, positive bowel sounds Extremities no cyanosis clubbing or edema Urinary Catheter Management^: Moreno: Cath Placed During This Visit: yes Reason for Continuing Indwelling Catheter: Other Urinary Catheter Date of Insertion: 03/16/20 Urinary Catheter Time of Insertion: 22:58 Data : 03/17/20 04:20 03/17/20 04:20 A&P Assessment and plan (1) Combative behavior: Presumably secondary to overdose with Flexeril and/or amphetamines He is cooperative with exam now. Status: Acute (2) Respiratory failure: Intubated for combative behavior and self-injurious behavior from my understanding. Discontinue sedation. Extubate currently. Status: Acute (3) Delirium due to dissociative drug: See above Status: Acute (4) Drug overdose, intentional: Flexeril overdose, unknown amount. Status: Acute (5) Suicidal ideation: indicates suicide attempt with Flexeril. Psychiatric consultation Patient on a 96-hour hold Status: Acute (6) Amphetamine abuse: Will certified alcohol and drug counselor when able Status: Acute Additional A&P Information Full code DVT prophylaxis: Lovenox Attestations Medical Necessity Statement*: Needs continued hospitalization for close monitoring following suicide attempt, even after we extubate him today. Coding Level of Care Code Acute Airplane Cleaner for [facility] Fwd Diagnoses Combative behavior R46.89 Respiratory failure J96.90 Delirium due to dissociative drug F16.921 Drug overdose, intentional T50.902A Suicidal ideation R45.851 Amphetamine abuse F15.10
[2020-03-18] MEDS: pantoprazole 40 mg SDV IVP (10:04)
[2020-03-18 10:48] LABS: Basophils % 0.1 %; Eosinophils % 0.2 %; Hematocrit 41.4 % (42.0-52.0); Hemoglobin 13.8 g/dL (11.7-16.6); Lymphocytes # 0.6 10^3/uL (0.8-4.8); Lymphocytes % 6.5 %; Mean Corpuscular HGB Conc 33.3 g/dL (30.0-36.0); Mean Platelet Volume 8.9 fL (7.4-10.4); Monocytes # 0.4 10^3/uL (0.2-0.9); Monocytes % 4.6 %; Neutrophils # 8.3 10^3/uL (1.8-7.7); Neutrophils % 88.3 %; Nucleated Red Blood Cells % 0 %; Platelet Count 247 10^3/cmm (130-400); Red Cell Distribution Width 13.2 % (12.1-15.1); White Blood Count 9.4 10^3/uL (4.0-10.0)
[2020-03-18 10:57] LABS: Alanine Aminotransferase 17 U/L (0-41); Albumin Level 3.9 g/dL (3.5-5.2); Alkaline Phosphatase 57 IU/L (40-130); Anion Gap 14.8 (5-19); Aspartate Amino Transferase 18 U/L (0-40); Blood Urea Nitrogen 4 mg/dL (6-20); Calcium 8.6 mg/dL (8.5-10.5); Carbon Dioxide 27 mmol/L (22-29); Chloride 99 mmol/L (98-107); Globulin 2.6 g/dL (1.3-4.6); Glomerular Filtration Rate 152.4 mL/min (90-130); Glucose 126 mg/dL (65-115); Osmolality Calculated 281 mOsm/kg (285-295); Potassium 3.8 mmol/L (3.5-5.1); Sodium 137 mmol/L (136-145); Total Bilirubin 0.6 mg/dL (0.15-1.2); Total Protein 6.5 g/dL (6.6-8.7)
--- NOTE | 2020-03-18 13:07 | XRR_ITS ---
PROCEDURE INFORMATION: Exam: XR Right Elbow Exam date and time: 03/18/2020 1:08 PM Age: 35 years old Clinical indication: Pain; Elbow; Right; Additional info: Elbow pain TECHNIQUE: Imaging protocol: XR Right elbow. Views: 1 or 2 views. COMPARISON: CR (UP EX, ) 03/18/2020 2:01 PM FINDINGS: Bones/joints: Normal. Soft tissues: Edema in the soft tissues surrounding the elbow most prominent ulnarly and posteriorly. XR/XR elbow RT 2V [id number] IMPRESSION: Edema in the soft tissues surrounding the elbow most prominent ulnarly and posteriorly.
--- NOTE | 2020-03-18 13:07 | XRR_ITS ---
PROCEDURE INFORMATION: Exam: XR Right Forearm Exam date and time: 03/18/2020 1:20 PM Age: 35 years old Clinical indication: Pain; Lower or forearm; Right TECHNIQUE: Imaging protocol: XR Right forearm. Views: 2 views. COMPARISON: No relevant prior studies available. FINDINGS: Bones/joints: Normal. Soft tissues: There is edema in the soft tissues surrounding the elbow. XR/XR forearm RT 2V [id number] IMPRESSION: There is edema in the soft tissues surrounding the elbow.
--- NOTE | 2020-03-18 16:16 | PC.NURSE ---
REPORT CALLED TO BRADEN HAGER RN. PT WHEELED TO NPU WITH SECURITY. PERSONAL BELONGINGS SENT WITH HIM. WISHED WELL
[2020-03-19 06:00] VITALS: BP 106/73; PULSE 95; RESP 18; TEMP 37.1; O2SAT 95
[2020-03-19] MEDS: thiamine 100 mg Tablet PO (08:31)
[2020-03-19] MEDS: multivitamin therapeutic Tablet 1 TAB PO (08:31)
--- NOTE | 2020-03-19 09:07 | P.HP_ITS ---
Providers/Chief Complaint Admitting Physician: Modesto Mc MD Chief Complaint: OVERDOSE/ COMBATIVE HPI NPU History of Present Illness Luis Beltrán is a 35 year old male who presented to the ICU secondary to an overdose on muscle relaxers and other pills. He was transferred to the neuro psych unit once he was extubated and medically cleared. He presents today reporting that life is been bad but has had significant relationship issues. He denies any psychiatric history ever being on medications he does report that he started experimenting with cigarettes, alcohol and marijuana when he was a kid but never really became a significant part of his life he reports. He endorsed having DUIs, but denied going to rehab. He does report that he has experimented with different drugs at different times. His UDS was positive for methamphetamine. He reports at the heart of his struggles have been his now ex- who for the last 6 years he reports has been heavily involved in drugs and running the streets. He has continued to care for her and make sure that she has a place to lay her head low she has become lost in her methamphetamine addiction he reports he has 4 children ages 11 and 17 and he is tried he reports to be a good father down and is currently struggling with the fact that he made this choice with 1 of had a chill and the fact cellulitis. He is a employed individual who was provided for development his family well. He denies any presence of suicidal thoughts or feelings at this point but he does endorse depression and we discussed the risks benefits and alternatives of initiating Prozac and he understood and agreed to proceed as is documented in his note. He endorsed feelings of deprerssion, helplessness, hopelessness and worthlessness. Psychiatric history: As above. Substance abuse history: As above. Family history: He denied any mental health or addiction issues on both sides of her family. He denied suicide attempts and completions on either side of the family. Developmental history: He denied any specific issues at , reported he learned to walk and talk and met his developmental milestones on time. He denied needing speech therapy, learning support, emotional support or special education classes. Psychosocial history: He reports his parents were together when he was born. They around age 10. He has an older brother and a younger sister who are products of the same relationship. He has no half siblings that he is aware of. He reports his childhood was pretty good and denies any emotional, physical or sexual abuse. He graduated from high school but denies any additional training. He is a heterosexual and his longest relationship was 20 years. He has been 1 time and once. He has 4 children ages 11 and 17. 17-year-old is with his first grandchild. He is never been in the and has no sick significant yazdanism belief system. 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 He reports he currently lives in a trailer with his 4 children. Legal history: He endorses being in half-way for 2 days once. Meds NPU Home Medications Medication Instructions Recorded Confirmed Last Taken Type No Known Home Medications 03/18/20 03/18/20 Unknown History Allergies Allergy/AdvReac Type Severity Reaction Status Date / Time No Known Allergies Allergy Verified 03/16/20 22:34 PFS NPU PFSH: Medical History No pertinent past medical history Surgical History No pertinent past surgical history Family History (Updated 03/17/20 @ 00:17 by Modesto Mc MD) Other Unknown family medical history Social History Smoking and tobacco status: unknown if ever smoked Mental Status Exam MSE Comments: This is a well-nourished well-developed white male with adequate dress grooming and limited eye contact. No abnormal movements except for mild psychomotor retardation. Cooperative with exam in no acute distress. Speech was decreased rate and volume. Mood described as a little better but still depressed, affect subdued. Thought process organized. Thought content: Patient denied any suicidal or homicidal ideation, no delusions reported or noted, he denied any auditory visual hallucinations. Attention and concentration appear intact and memory is reliable, but none were formally tested. He is alert and oriented x3. Insight and judgment appear limited but improving. Vitals/I&O/Wt Last Vital Signs Temp 98.7 F 03/19/20 06:00 Pulse 95 03/19/20 06:00 Resp 18 03/19/20 06:00 BP 106/73 03/19/20 06:00 Pulse Ox 95 03/19/20 06:00 Weight last 48 hrs Weight 72.575 kg Weight 79.379 kg Weight 79.379 kg Physical Exam Urinary Catheter Management^: Moreno: Cath Placed During This Visit: yes Reason for Continuing Indwelling Catheter: Other Urinary Catheter Date of Insertion: 03/16/20 Urinary Catheter Time of Insertion: 22:58 Data NPU : 03/18/20 10:32 03/18/20 10:32 A&P Assessment and plan (1) Amphetamine abuse: Status: Acute (2) Suicidal ideation: Status: Acute (3) Drug overdose, intentional: Status: Acute (4) Depressive disorder: Status: Acute (5) Partner relationship problem: Status: Acute Additional A&P Information This is a 35-year-old who presents white male with a no reported history of men sugar health issues, but some alcohol and other addiction issues who presents to the neuropsychiatric unit after a 2-day stay in the ICU secondary to an intentional overdose who presents reporting an openness to try an antidepressant. 1. Continue current medication. Initiate Prozac 20 mg p.o. every morning 2. Encourage individual group and milieu therapy. 3. Continue to 15-minute checks for safety. 4. We will work with social work team for appropriate follow-up and recommend sober living treatment at the highest level to which he is willing to commit. Involuntary Hold Information 96 Hour Hold: 96 Hour Involuntary Admission: Yes 96 Hour Hold Ending Date: 03/23/20 96 Hour Hold Ending Time: 07:30 Attestations NPU Medical Necessity Statement*: Inpatient hospitalization is medically necessary and the clinically appropriate intervention this time. He will be in the hospital for over 2 midnights. We will monitor medications and make changes as indicated. Likely length of stay 3-5 days Coding Level of Care Code Acute Pi/Senior Research Associate for [facility] Fwd Diagnoses Amphetamine abuse F15.10 Suicidal ideation R45.851 Drug overdose, intentional T50.902A Depressive disorder F32.9 Partner relationship problem Z63.0
[2020-03-19 14:00] VITALS: BP 131/87; PULSE 89; RESP 19; TEMP 36.9
[2020-03-19] MEDS: fluoxetine 20 mg Capsule PO (16:41)
[2020-03-19 21:26] VITALS: BP 108/72; PULSE 81; RESP 18; TEMP 36.8; O2SAT 96
[2020-03-20 06:00] VITALS: BP 103/68; PULSE 84; RESP 18; TEMP 36.5; O2SAT 96
[2020-03-20] MEDS: thiamine 100 mg Tablet PO (08:20)
[2020-03-20] MEDS: fluoxetine 20 mg Capsule PO (08:20)
[2020-03-20] MEDS: multivitamin therapeutic Tablet 1 TAB PO (08:20)
[2020-03-20 13:36] VITALS: BP 101/65; PULSE 83; RESP 18; TEMP 36.9; O2SAT 96
--- NOTE | 2020-03-20 18:15 | P.PN_ITS ---
Subjective NPU Subjective: Interval history: Patient presents today reporting that he is feeling a little better. He denies any problems with the medication he just finds himself doing significant soul searching trying to figure out how he got to the point he got to and how to prevent it from happening again. He denies any side effects and reports that he is sleeping okay. He endorsed a plan to follow-up with aftercare when he is discharged. Mental Status Exam MSE Comments: This is a well-nourished well-developed white male with adequate dress grooming and improving eye contact. No abnormal movements except for mild psychomotor retardation. Cooperative with exam in no acute distress. Speech was decreased rate and volume. Mood described as a little better, affect subdued. Thought process organized. Thought content: Patient denied any suicidal or homicidal ideation, no delusions reported or noted, he denied any auditory visual hallucinations. Attention and concentration appear intact and memory is reliable, but none were formally tested. He is alert and oriented x3. Insight and judgment appear limited but improving. Vitals/I&O/Wt Last Vital Signs Temp 98.4 F 03/20/20 13:36 Pulse 83 03/20/20 13:36 Resp 18 03/20/20 13:36 BP 101/65 03/20/20 13:36 Pulse Ox 96 03/20/20 13:36 Weight last 48 hrs Weight 72.575 kg Physical Exam Urinary Catheter Management^: Moreno: Cath Placed During This Visit: yes Reason for Continuing Indwelling Catheter: Other Urinary Catheter Date of Insertion: 03/16/20 Urinary Catheter Time of Insertion: 22:58 Data NPU : 03/18/20 10:32 03/18/20 10:32 A&P Additional A&P Information (1) Amphetamine abuse: (2) Suicidal ideation: (3) Drug overdose, intentional: (4) Depressive disorder: (5) Partner relationship problem: This is a 35-year-old who presents white male with a no reported history of mental health issues, but some alcohol and other addiction issues who presents to the neuropsychiatric unit after a 2-day stay in the ICU secondary to an intentional overdose who presents reporting an openness to try an antidepressant. 1. Continue current medication. 2. Encourage individual group and milieu therapy. 3. Continue to 15-minute checks for safety. 4. We will work with social work team for appropriate follow-up and recommend sober living treatment at the highest level to which he is willing to commit. Involuntary Hold Information 96 Hour Hold: 96 Hour Involuntary Admission: Yes 96 Hour Hold Ending Date: 03/23/20 96 Hour Hold Ending Time: 07:30 Attestations NPU Medical Necessity Statement*: Inpatient hospitalization is medically necessary and the clinically appropriate intervention this time. We will monitor medications and make changes as indicated. Likely length of stay 2-4 days Coding Level of Care Code Acute Local City Driver for [facility]
[2020-03-20] MEDS: trazodone 50 mg Tablet PO (21:27)
[2020-03-20 21:51] VITALS: BP 110/73; PULSE 93; RESP 18; TEMP 37.1; O2SAT 98
--- NOTE | 2020-03-20 22:32 | PC.NURSE ---
PT GIVEN PRN TRAZODONE PER PT REQUEST FOR SLEEP.
[2020-03-21 05:50] VITALS: BP 105/71; PULSE 81; RESP 16; TEMP 36.8; O2SAT 96
[2020-03-21] MEDS: fluoxetine 20 mg Capsule PO (08:50)
[2020-03-21] MEDS: thiamine 100 mg Tablet PO (08:50)
[2020-03-21] MEDS: multivitamin therapeutic Tablet 1 TAB PO (08:50)
--- NOTE | 2020-03-21 12:32 | P.PN_ITS ---
Subjective NPU Subjective: Interval history: Luis presents today reporting that he is feeling better. He is spoken to his boss and he says his boss is very supportive. He reports that he is feeling optimistic about being a grandfather and continuing to lead his family as he has. He reports that he will follow-up with treatment and try to get support instead of trying to hold everything in. We discussed his 96-hour hold and that given his progress we would be fine with discharge in the morning which made him very happy. Mental Status Exam MSE Comments: This is a well-nourished well-developed white male with adequate dress grooming and improving eye contact. No abnormal movements except for improving mild psychomotor retardation. Cooperative with exam in no acute distress. Speech was more normal rate and volume. Mood described as a better, affect less subdued. Thought process organized. Thought content: Patient denied any suicidal or homicidal ideation, no delusions reported or noted, he denied any auditory visual hallucinations. Attention and concentration appear intact and memory is reliable, but none were formally tested. He is alert and oriented x3. Insight and judgment appear improving. Vitals/I&O/Wt Last Vital Signs Temp 98.5 F 03/21/20 22:00 Pulse 92 03/21/20 22:00 Resp 17 03/21/20 22:00 BP 94/62 03/21/20 22:00 Pulse Ox 97 03/21/20 22:00 Physical Exam Urinary Catheter Management^: Moreno: Cath Placed During This Visit: yes Reason for Continuing Indwelling Catheter: Other Urinary Catheter Date of Insertion: 03/16/20 Urinary Catheter Time of Insertion: 22:58 Data NPU : 03/18/20 10:32 03/18/20 10:32 A&P Additional A&P Information (1) Amphetamine abuse: (2) Suicidal ideation: (3) Drug overdose, intentional: (4) Depressive disorder: (5) Partner relationship problem: This is a 35-year-old who presents white male with a no reported history of mental health issues, but some alcohol and other addiction issues who presents to the neuropsychiatric unit after a 2-day stay in the ICU secondary to an intentional overdose who presents reporting an openness to try an antidepressant. 1. Continue current medication. 2. Encourage individual group and milieu therapy. 3. Continue to 15-minute checks for safety. 4. We will work with social work team for appropriate follow-up and recommend sober living treatment at the highest level to which he is willing to commit. Involuntary Hold Information 96 Hour Hold: 96 Hour Involuntary Admission: Yes 96 Hour Hold Ending Date: 03/23/20 96 Hour Hold Ending Time: 07:30 Attestations NPU Medical Necessity Statement*: Inpatient hospitalization is medically necessary and the clinically appropriate intervention this time. We will monitor medications and make changes as indicated. Likely length of stay 1-2 days. Tentative plan for discharge tomorrow. Coding Level of Care Code Acute Water Plant Pump Operator for [facility]
[2020-03-21 13:36] VITALS: BP 109/68; PULSE 88; RESP 20; TEMP 36.6; O2SAT 97
[2020-03-21] MEDS: nicotine 2 mg Gum BUCCAL (17:19)
[2020-03-21] MEDS: trazodone 50 mg Tablet PO (21:04)
[2020-03-21 22:00] VITALS: BP 94/62; PULSE 92; RESP 17; TEMP 36.9; O2SAT 97
[2020-03-22 06:00] VITALS: BP 114/78; PULSE 96; RESP 17; TEMP 36.7; O2SAT 97
[2020-03-22] MEDS: thiamine 100 mg Tablet PO (09:06)
[2020-03-22] MEDS: fluoxetine 20 mg Capsule PO (09:06)
[2020-03-22] MEDS: multivitamin therapeutic Tablet 1 TAB PO (09:06)
--- NOTE | 2020-03-22 10:56 | P.DS_ITS ---
Diagnoses at Discharge Discharge Diagnosis (1) Amphetamine abuse: Status: Acute (2) Suicidal ideation: Status: Resolved (3) Drug overdose, intentional: Status: Resolved (4) Depressive disorder: Status: Acute (5) Partner relationship problem: Status: Acute Reason for Visit Reason for Visit: OVERDOSE/ COMBATIVE Brief History: History of Present Illness Luis Beltrán is a 35 year old male who presented to the ICU secondary to an overdose on muscle relaxers and other pills. He was transferred to the neuro psych unit once he was extubated and medically cleared. He presents today reporting that life is been bad but has had significant relationship issues. He denies any psychiatric history ever being on medications he does report that he started experimenting with cigarettes, alcohol and marijuana when he was a kid but never really became a significant part of his life he reports. He endorsed having DUIs, but denied going to rehab. He does report that he has experimented with different drugs at different times. His UDS was positive for methamphetamine. He reports at the heart of his struggles have been his now ex- who for the last 6 years he reports has been heavily involved in drugs and running the streets. He has continued to care for her and make sure that she has a place to lay her head low she has become lost in her methamphetamine addiction he reports he has 4 children ages 11 and 17 and he is tried he reports to be a good father down and is currently struggling with the fact that he made this choice with 1 of had a chill and the fact cellulitis. He is a employed individual who was provided for development his family well. He denies any presence of suicidal thoughts or feelings at this point but he does endorse depression and we discussed the risks benefits and alternatives of initiating Prozac and he understood and agreed to proceed as is documented in his note. He endorsed feelings of deprerssion, helplessness, hopelessness and worthlessness. Psychiatric history: As above. Substance abuse history: As above. Family history: He denied any mental health or addiction issues on both sides of her family. He denied suicide attempts and completions on either side of the family. Developmental history: He denied any specific issues at , reported he learned to walk and talk and met his developmental milestones on time. He denied needing speech therapy, learning support, emotional support or special education classes. Psychosocial history: He reports his parents were together when he was born. They around age 10. He has an older brother and a younger sister who are products of the same relationship. He has no half siblings that he is aware of. He reports his childhood was pretty good and denies any emotional, physical or sexual abuse. He graduated from high school but denies any additional training. He is a heterosexual and his longest relationship was 20 years. He has been 1 time and once. He has 4 children ages 11 and 17. 17-year-old is with his first grandchild. He is never been in the and has no sick significant bahai belief system. His longest employment has been 17 years in the [employer] industry where he is still unemployed. He reports he currently lives in a trailer with his 4 children. Legal history: He endorses being in custodial for 2 days once. Hospital Course Hospital Course Luis presented to the emergency room having overdosed on muscle relaxers and other pills, who was transferred to the ICU for definitive treatment of those issues. During the ICU stay, he identified that he had in fact intentionally overdosed and so after he was medically cleared, he was transferred to the neuro-psychiatric unit for definitive care for his mental health issues. On the unit, he slowly acclimated to the individual, group, and milieu therapies provided, as he was on a 96-hour hold. Ultimately, he was open to medication and accepted a trial of Prozac with a fairly robust response. During the hospitalization, he identified some very clear factors that would be reasons he would not want to repeat his past behavior. He had a grandchild on the way, and otherwise identified the role that his relationship with his ex was playing in his recent choices and challenges. During the hospitalization, the patient had routine laboratory studies which were within normal limits, except for a few outliers. Additionally, he had a general medical evaluation which was within normal limits and revealed no new acute processes. Discharge Summary At the time of discharge the patient denied all lethality, was absent psychosis, and mood and anxiety were well managed. The patient endorsed a plan to avoid all drugs of abuse and to follow-up with outpatient services, as recommended. He was evaluated and deemed to be absent credible lethality, and had achieved the max imum benefit from an inpatient hospitalization, and so he was discharged. No new processes except for those that were addressed by the ICU. Involuntary Hold Information 96 Hour Hold: 96 Hour Involuntary Admission: Yes 96 Hour Hold Ending Date: 03/23/20 96 Hour Hold Ending Time: 07:30 Mental Status Exam MSE Comments: This is a well-nourished, well-developed, white male, with adequate dress, grooming, and eye contact. No abnormal movements. Cooperative with exam in no acute distress. Speech was normal rate and volume. Mood described as much better/good; affect congruent. Thought process, organized. Thought content: patient denied any suicidal or homicidal ideation, there were no delusions reported or noted, patient denied any auditory or visual ivan lucinations. Attention, concentration, and memory appeared intact but were not formally tested. Alert and oriented times three. Insight and judgment are fair and improving. Physical Exam Urinary Catheter Management^: Moreno: Cath Placed During This Visit: yes Reason for Continuing Indwelling Catheter: Other Urinary Catheter Date of Insertion: 03/16/20 Urinary Catheter Time of Insertion: 22:58 Discharge Data Data Completed and Pending: Completed Studies During Hospitalization Category Date Time Status CT cervical spin wo con* 35312 Urge nt Cat Scan 03/16/20 23:[address] head wo con* 7 0450 Stat Cat Scan 03/16/20 23:59 Completed XR chest 1V [place] ble [id number] Stat Exams 03/16/20 22:02 Completed XR elbow RT 2V 73 070 Routine Exams 03/18/20 13:07 Completed XR forearm RT 2V [id number] Routine Exams 03/18/20 13:07 Completed Vitals: Last Vital Signs Temp 98.1 F 03/22/20 06:00 Pulse 96 03/22/20 06:00 Resp 17 03/22/20 06:00 BP 114/78 03/22/20 06:00 Pulse Ox 97 03/22/20 06:00 Discharge Plan Discharge Patient Disposition: Home, Self-Care Condition: Stable Prescriptions: New fluoxetine 20 mg Capsule 20 mg PO DAILY 30 Days Qty: 30 RF: 1 Continued No Known Home Medications RF: 0 Discharge Orders: Discharge Order (Routine); Ordered 03/22/20 Ordered By: eHsham Tomlin Referrals: [facility] [place] [facility] [Outside] - 1-3 days (intake paperwork to be given to [facility]. initial assessment to be done and then you will be able to get counseling and psychiatric medication management. they have a sliding scale and also department of mental health funds to help fund services. go some time within the walk-in hours or call first to see about getting the initial assessment done. walk-in hours: Friday through Friday 7:30 a.m.- 2:30 p.m. ) [facility] [Outside] (If needed, [facility], also known [facility], provides treatment for substance abuse issues. ) Discharge Diet: Regular Discharge Activity: Resume usual activity and May return to work/school without restrictions Discharge Date/Time: 03/22/20 12:09 Discharge Attestations NPU Time Spent in Discharge Care*: less than 30 min Specific Discharge Activities: Specific discharge activities: educating patient, discussing with case investigator/social workers/dc planners, documenting/other paperwork and evaluating patient/reviewing data Coding Level of Care Code Acute Marriage Therapist for Sher Fwd Diagnoses Amphetamine abuse F15.10 Suicidal ideation R45.851 Drug overdose, intentional T50.902A Depressive disorder F32.9 Partner relationship problem Z63.0
[2020-03-22 11:20] VITALS: BP 114/78; PULSE 96; RESP 17; TEMP 36.7; O2SAT 97
== END 2020-03-22 12:09 | disposition home or self-care (01) | DRG 917 ==
LOC: ER 22:39 → ICU 03-17 00:05 → NP 03-18 16:03
PROVIDERS: Emergency Medicine; Internal Medicine; Admitting Provider Internal Medicine; Visit Provider Psychiatry & Neurology Psychiatry
DX: T48.1X2A Poisoning by skeletal muscle relaxants [neuromuscular blocking agents], intentional self-harm, initial encounter (principal); J96.90 Respiratory failure, unspecified, unspecified whether with hypoxia or hypercapnia; F19.921 Other psychoactive substance use, unspecified with intoxication with delirium; R45.851 Suicidal ideations; F15.10 Other stimulant abuse, uncomplicated; Z63.0 Problems in relationship with spouse or partner; F32.9 Major depressive disorder, single episode, unspecified; M25.521 Pain in right elbow
CPT/HCPCS: 12345; 31500; 36415; 36600; 51702; 70450; 71045; 72125; 73070; 73090; 80051; 80053; 80156; 80164; 80178; 80185; 80306; 80307; 81001; 82009; 82550; 82803; 82810; 83605; 83735; 83986; 84443; 84484; 85025; 85610; 93005; 94002; 94003; 94799; 96372; 96375; 99284; A4570; C9113; J0330; J1630; J1650; J2060; J2704; J3010; J3411; J3490; J7030; J7799